=== PATIENT | female | born 1960 | race Caucasian/White ===

== ENCOUNTER 2023-07-05 17:23 | Emergency (ER) | payer BC, OTHER ==
[2023-07-05] MEDS ORDERED: Sodium Chloride 0.9% 10 ML Syringe FLUSH PRN (17:53)
[2023-07-05 18:01] LABS: BASOPHILS PERCENT AUTO 0.4 % (0.2-1.2); EOSINOPHILS ABSOLUTE AUTO 0.1 x10^3/uL (0.0-0.5); EOSINOPHILS PERCENT AUTO 1.1 % (0.0-4.0); HEMATOCRIT 41.3 % (33.0-47.0); HEMOGLOBIN 14.4 g/dL (12.0-16.0); IMMATURE GRAN ABSOLUTE AUTO 0.03 x10^3/uL (0.00-0.07); LYMPHOCYTES ABSOLUTE AUTO 2.3 x10^3/uL (1.0-4.8); LYMPHOCYTES PERCENT AUTO 26.7 % (25.0-50.0); MEAN CORPUSCULAR HEMOGLOBIN 31.2 pg (26.0-32.0); MEAN CORPUSCULAR HGB CONC 34.9 g/dL (32.0-36.0); MEAN CORPUSCULAR VOLUME 89.4 fL (78.0-93.0); MONOCYTES ABSOLUTE AUTO 0.8 x10^3/uL (0.0-0.8); MONOCYTES PERCENT AUTO 9.3 % (2.0-11.0); NEUTROPHILS ABSOLUTE AUTO 5.3 x10^3/uL (1.8-7.7); NEUTROPHILS PERCENT AUTO 62.1 % (50.0-80.0); PLATELET COUNT,PLT 351 x10^3/uL (130-400); RED BLOOD CELL COUNT 4.62 x10^6/uL (4.00-5.50); WHITE BLOOD CELL COUNT,WBC 8.5 x10^3/uL (4.0-10.0)
[2023-07-05] MEDS: Sodium Chloride 0.9% 1,000 ML IV ONE (18:03)
[2023-07-05 18:18] LABS: ALANINE AMINOTRANSFERASE,ALT 28 U/L (14-59); ALBUMIN 3.5 g/dL (3.4-5.0); ALKALINE PHOSPHATASE 86 U/L (46-116); ASPARTATE AMNIOTRANSFERASE,AST 14 U/L (15-37); BILIRUBIN TOTAL 0.3 mg/dL (0.2-1.0); BLOOD UREA NITROGEN,BUN 34 mg/dL (7-18); CALCIUM 9.6 mg/dL (8.5-10.1); CARBON DIOXIDE,CO2 25 mmol/L (21-32); CHLORIDE,CL 97 mmol/L (98-107); CREATININE 1.3 mg/dL (0.55-1.02); POTASSIUM,K 4.5 mmol/L (3.5-5.1); PROTEIN TOTAL,TP 7.4 g/dL (6.4-8.2); SODIUM,NA 134 mmol/L (136-145)
[2023-07-05 18:20] LABS: ANION GAP 16.5 mmol/L (5-15)
[2023-07-05 18:21] LABS: ESTIMATED GFR 46 mL/min (>=60); GLUCOSE RANDOM 407 mg/dL (70-99)
[2023-07-05 18:58] VITALS: BP 127/87; PULSE 87
== END 2023-07-05 18:45 | disposition home or self-care (01) ==
LOC: VM.ED 17:23
DX: E11.65 Type 2 diabetes mellitus with hyperglycemia (principal); R42 Dizziness and giddiness; Z91.148 Patient's other noncompliance with medication regimen for other reason
CPT/HCPCS: 80053; 84484; 85025; 93005; 96360; 99284; J7030; 93010

== ENCOUNTER 2023-07-29 08:10 | Inpatient (IN) | payer OTHER ==
[2023-07-31] MEDS ORDERED: Glucagon,Human Recombinant 1 MG Vial IM PRN (14:37)
[2023-07-31] MEDS ORDERED: 50% Dextrose in Water 50 ML Syringe IVPUSH PRN (14:37)
[2023-07-31] MEDS ORDERED: Clobetasol 0.05% Crm 30 GM Tube TOP PRN (14:37)
[2023-07-31] MEDS ORDERED: Acetaminophen 500 MG Tab PO PRN (14:37)
[2023-07-31] MEDS ORDERED: oxyCODONE 5 MG Tab PO PRN (14:37)
[2023-07-31] MEDS ORDERED: Melatonin 3 MG Tab PO PRN (14:51)
[2023-07-31] MEDS: Insulin Lispro 100 Units/ML 3 ML Vial SUBCUT SCH (18:56)
[2023-07-31] MEDS ORDERED: Insulin Glarg,Human.Rec.Analog 100 Unit/ML 10 ML Vial SUBCUT SCH (21:00)
[2023-07-31] MEDS: Insulin Glarg,Human.Rec.Analog 100 Unit/ML 10 ML Vial SUBCUT SCH (21:02)
[2023-07-31] MEDS: Melatonin 3 MG Tab PO SCH (21:02)
[2023-07-31] MEDS: atorvaSTATin 10 MG Tab PO SCH (21:02)
[2023-07-31] MEDS: Sennosides 8.6 MG Tab PO SCH (21:02)
[2023-07-31] MEDS: Calcium Citrate/Vitamin D3 315 MG-250 Unit Tab PO SCH (21:02)
[2023-07-31] MEDS: Tamsulosin 0.4 MG Cap.ER PO SCH (21:02)
[2023-08-01 06:49] LABS: HEMATOCRIT 31.8 % (33.0-47.0); HEMOGLOBIN 10.9 g/dL (12.0-16.0); MEAN CORPUSCULAR HGB CONC 34.3 g/dL (32.0-36.0); MEAN CORPUSCULAR VOLUME 93.3 fL (78.0-93.0); RED BLOOD CELL COUNT 3.41 x10^6/uL (4.00-5.50); WHITE BLOOD CELL COUNT,WBC 8.7 x10^3/uL (4.0-10.0)
[2023-08-01] MEDS: Fludrocortisone 0.1 MG Tab PO SCH (08:29)
[2023-08-01] MEDS: Cholecalciferol (Vitamin D3) 25 MCG Tab PO SCH (08:29)
[2023-08-01] MEDS: Enoxaparin 40 MG/0.4 ML Syringe SUBCUT SCH (08:29)
[2023-08-01] MEDS: Polyethylene Glycol 3350 Powder 17 GM Packet PO SCH (08:29)
[2023-08-01] MEDS: Sertraline 50 MG Tab PO SCH (08:29)
[2023-08-04 07:05] LABS: HEMATOCRIT 33.9 % (33.0-47.0); HEMOGLOBIN 11.5 g/dL (12.0-16.0); MEAN CORPUSCULAR HEMOGLOBIN 31.4 pg (26.0-32.0); MEAN CORPUSCULAR HGB CONC 33.9 g/dL (32.0-36.0); MEAN CORPUSCULAR VOLUME 92.6 fL (78.0-93.0); RED BLOOD CELL COUNT 3.66 x10^6/uL (4.00-5.50); WHITE BLOOD CELL COUNT,WBC 7.8 x10^3/uL (4.0-10.0)
[2023-08-05] MEDS: SEMAGLUTIDE SUBCUT SCH (12:46)
[2023-08-06] MEDS: Fludrocortisone 0.1 MG Tab PO ONE (09:56)
[2023-08-07 07:02] LABS: HEMOGLOBIN 11.9 g/dL (12.0-16.0); MEAN CORPUSCULAR HEMOGLOBIN 30.9 pg (26.0-32.0); MEAN CORPUSCULAR HGB CONC 33.1 g/dL (32.0-36.0); MEAN CORPUSCULAR VOLUME 93.5 fL (78.0-93.0); RED BLOOD CELL COUNT 3.85 x10^6/uL (4.00-5.50); WHITE BLOOD CELL COUNT,WBC 8.7 x10^3/uL (4.0-10.0)
[2023-08-07] MEDS: Fludrocortisone 0.1 MG Tab PO SCH (08:42)
[2023-08-10 07:59] LABS: HEMATOCRIT 35.9 % (33.0-47.0); HEMOGLOBIN 11.9 g/dL (12.0-16.0); MEAN CORPUSCULAR HEMOGLOBIN 31.1 pg (26.0-32.0); MEAN CORPUSCULAR HGB CONC 33.1 g/dL (32.0-36.0); MEAN CORPUSCULAR VOLUME 93.7 fL (78.0-93.0); RED BLOOD CELL COUNT 3.83 x10^6/uL (4.00-5.50); WHITE BLOOD CELL COUNT,WBC 6.4 x10^3/uL (4.0-10.0)
[2023-08-13 06:52] LABS: HEMATOCRIT 35.3 % (33.0-47.0); HEMOGLOBIN 11.7 g/dL (12.0-16.0); MEAN CORPUSCULAR HEMOGLOBIN 30.6 pg (26.0-32.0); MEAN CORPUSCULAR HGB CONC 33.1 g/dL (32.0-36.0); MEAN CORPUSCULAR VOLUME 92.4 fL (78.0-93.0); RED BLOOD CELL COUNT 3.82 x10^6/uL (4.00-5.50); WHITE BLOOD CELL COUNT,WBC 7.5 x10^3/uL (4.0-10.0)
[2023-08-14] MEDS: Fludrocortisone 0.1 MG Tab PO SCH (08:52)
[2023-08-15 13:00] LABS: A/G RATIO 0.83; ALBUMIN 2.9 g/dL (3.4-5.0); BILIRUBIN TOTAL 0.3 mg/dL (0.2-1.0); CALCIUM 9.2 mg/dL (8.5-10.1); CREATININE 0.9 mg/dL (0.55-1.02); EST CRCL DRUG DOSING (CG) 55.25 mL/min; POTASSIUM,K 3.5 mmol/L (3.5-5.1); PROTEIN TOTAL,TP 6.4 g/dL (6.4-8.2)
[2023-08-15 13:03] LABS: ANION GAP 11.5 mmol/L (5-15)
[2023-08-16 07:54] LABS: HEMATOCRIT 38.1 % (33.0-47.0); HEMOGLOBIN 12.6 g/dL (12.0-16.0); MEAN CORPUSCULAR HEMOGLOBIN 30.9 pg (26.0-32.0); MEAN CORPUSCULAR HGB CONC 33.1 g/dL (32.0-36.0); MEAN CORPUSCULAR VOLUME 93.4 fL (78.0-93.0); RED BLOOD CELL COUNT 4.08 x10^6/uL (4.00-5.50); WHITE BLOOD CELL COUNT,WBC 7.7 x10^3/uL (4.0-10.0)
[2023-08-17] MEDS: Ondansetron 4 MG Tab.DIS PO PRN (04:24)
[2023-08-18] MEDS: Sodium Chloride 0.9% 1,000 ML IV SCH (18:46)
[2023-08-19 06:57] LABS: BASOPHILS PERCENT AUTO 0.2 % (0.2-1.2); EOSINOPHILS ABSOLUTE AUTO 0.1 x10^3/uL (0.0-0.5); EOSINOPHILS PERCENT AUTO 1.7 % (0.0-4.0); HEMATOCRIT 38.4 % (33.0-47.0); HEMOGLOBIN 12.9 g/dL (12.0-16.0); IMMATURE GRAN ABSOLUTE AUTO 0.02 x10^3/uL (0.00-0.07); LYMPHOCYTES ABSOLUTE AUTO 2.3 x10^3/uL (1.0-4.8); LYMPHOCYTES PERCENT AUTO 27.5 % (25.0-50.0); MEAN CORPUSCULAR HEMOGLOBIN 31.1 pg (26.0-32.0); MEAN CORPUSCULAR HGB CONC 33.6 g/dL (32.0-36.0); MEAN CORPUSCULAR VOLUME 92.5 fL (78.0-93.0); MONOCYTES ABSOLUTE AUTO 0.8 x10^3/uL (0.0-0.8); MONOCYTES PERCENT AUTO 9.5 % (2.0-11.0); NEUTROPHILS ABSOLUTE AUTO 5.1 x10^3/uL (1.8-7.7); NEUTROPHILS PERCENT AUTO 60.9 % (50.0-80.0); PLATELET COUNT,PLT 301 x10^3/uL (130-400); RED BLOOD CELL COUNT 4.15 x10^6/uL (4.00-5.50); WHITE BLOOD CELL COUNT,WBC 8.3 x10^3/uL (4.0-10.0)
[2023-08-19 07:19] LABS: A/G RATIO 0.91; BILIRUBIN TOTAL 0.4 mg/dL (0.2-1.0); CALCIUM 9.2 mg/dL (8.5-10.1); CREATININE 0.8 mg/dL (0.55-1.02); EST CRCL DRUG DOSING (CG) 62.15 mL/min; POTASSIUM,K 3.8 mmol/L (3.5-5.1); PROTEIN TOTAL,TP 6.3 g/dL (6.4-8.2)
[2023-08-19 07:21] LABS: ANION GAP 11.8 mmol/L (5-15)
[2023-08-19 07:29] LABS: MAGNESIUM 1.8 mg/dL (1.8-2.4); TSH ULTRASENSITIVE 3.036 uIU/mL (0.358-3.74)
[2023-08-22] MEDS ORDERED: Glucagon,Human Recombinant 1 MG Vial IM PRN (08:40)
[2023-08-22] MEDS ORDERED: 50% Dextrose in Water 50 ML Syringe IVPUSH PRN (08:40)
[2023-08-22] MEDS: Sodium Chloride 0.9% 1,000 ML IV ONE (09:25)
[2023-08-22] MEDS: Fludrocortisone 0.1 MG Tab PO SCH (09:28)
[2023-08-22] MEDS: Insulin Lispro 100 Units/ML 3 ML Vial SUBCUT SCH (11:56)
[2023-08-22] MEDS: Insulin Glarg,Human.Rec.Analog 100 Unit/ML 10 ML Vial SUBCUT SCH (20:45)
[2023-08-22] MEDS: Sodium Chloride 0.9% 10 ML Syringe FLUSH SCH (20:54)
[2023-08-24] MEDS: Fludrocortisone 0.1 MG Tab PO SCH (14:57)
[2023-08-25 07:07] LABS: BASOPHILS PERCENT AUTO 0.3 % (0.2-1.2); EOSINOPHILS ABSOLUTE AUTO 0.2 x10^3/uL (0.0-0.5); EOSINOPHILS PERCENT AUTO 2.7 % (0.0-4.0); HEMATOCRIT 39.1 % (33.0-47.0); HEMOGLOBIN 13.3 g/dL (12.0-16.0); IMMATURE GRAN ABSOLUTE AUTO 0.03 x10^3/uL (0.00-0.07); LYMPHOCYTES ABSOLUTE AUTO 2.6 x10^3/uL (1.0-4.8); LYMPHOCYTES PERCENT AUTO 34.2 % (25.0-50.0); MEAN CORPUSCULAR HEMOGLOBIN 31.3 pg (26.0-32.0); MONOCYTES ABSOLUTE AUTO 0.9 x10^3/uL (0.0-0.8); NEUTROPHILS PERCENT AUTO 51.4 % (50.0-80.0); PLATELET COUNT,PLT 303 x10^3/uL (130-400); RED BLOOD CELL COUNT 4.25 x10^6/uL (4.00-5.50); WHITE BLOOD CELL COUNT,WBC 7.7 x10^3/uL (4.0-10.0)
[2023-08-25 07:25] LABS: CREATININE 0.8 mg/dL (0.55-1.02); EST CRCL DRUG DOSING (CG) 62.15 mL/min; POTASSIUM,K 3.9 mmol/L (3.5-5.1)
[2023-08-25 07:26] LABS: ANION GAP 10.9 mmol/L (5-15)
[2023-08-28] MEDS: Insulin Lispro 100 Units/ML 3 ML Vial SUBCUT SCH (18:26)
[2023-08-28] MEDS: Insulin Glarg,Human.Rec.Analog 100 Unit/ML 10 ML Vial SUBCUT SCH (21:58)
[2023-08-30] MEDS: Sodium Chloride 0.9% 500 ML IV ONE (20:41)
[2023-08-31] MEDS: Sodium Chloride 0.9% 10 ML Syringe FLUSH SCH (08:29)
[2023-09-01] MEDS: Fludrocortisone 0.1 MG Tab PO SCH (20:27)
[2023-09-02 06:31] LABS: BASOPHILS PERCENT AUTO 0.1 % (0.2-1.2); EOSINOPHILS ABSOLUTE AUTO 0.4 x10^3/uL (0.0-0.5); EOSINOPHILS PERCENT AUTO 4.4 % (0.0-4.0); HEMATOCRIT 38.2 % (33.0-47.0); HEMOGLOBIN 12.7 g/dL (12.0-16.0); IMMATURE GRAN ABSOLUTE AUTO 0.01 x10^3/uL (0.00-0.07); LYMPHOCYTES ABSOLUTE AUTO 2.7 x10^3/uL (1.0-4.8); LYMPHOCYTES PERCENT AUTO 30.8 % (25.0-50.0); MEAN CORPUSCULAR HEMOGLOBIN 30.8 pg (26.0-32.0); MEAN CORPUSCULAR HGB CONC 33.2 g/dL (32.0-36.0); MEAN CORPUSCULAR VOLUME 92.7 fL (78.0-93.0); MONOCYTES ABSOLUTE AUTO 0.8 x10^3/uL (0.0-0.8); MONOCYTES PERCENT AUTO 8.6 % (2.0-11.0); NEUTROPHILS ABSOLUTE AUTO 4.9 x10^3/uL (1.8-7.7); PLATELET COUNT,PLT 313 x10^3/uL (130-400); RED BLOOD CELL COUNT 4.12 x10^6/uL (4.00-5.50); WHITE BLOOD CELL COUNT,WBC 8.7 x10^3/uL (4.0-10.0)
[2023-09-02 06:47] LABS: CALCIUM 8.7 mg/dL (8.5-10.1); CREATININE 0.8 mg/dL (0.55-1.02); EST CRCL DRUG DOSING (CG) 62.15 mL/min; POTASSIUM,K 3.6 mmol/L (3.5-5.1)
[2023-09-02 06:53] LABS: ANION GAP 11.6 mmol/L (5-15)
[2023-09-02] MEDS: Midodrine 5 MG Tab PO SCH (09:23)
[2023-09-03] MEDS: Insulin Lispro 100 Units/ML 3 ML Vial SUBCUT SCH (08:57)
[2023-09-03] MEDS ORDERED: Polyethylene Glycol 3350 Powder 17 GM Packet PO PRN (12:23)
[2023-09-03] MEDS: Insulin Glarg,Human.Rec.Analog 100 Unit/ML 10 ML Vial SUBCUT SCH (20:53)
[2023-09-04] MEDS: Midodrine 5 MG Tab PO SCH (08:40)
[2023-09-05 05:07] LABS: % TRANSFERRIN SAT 17.5 % (20.0-50.0)
[2023-09-09] MEDS: Insulin Glarg,Human.Rec.Analog 100 Unit/ML 10 ML Vial SUBCUT SCH (21:04)
[2023-09-10] MEDS: Fludrocortisone 0.1 MG Tab PO SCH (12:20)
[2023-09-11 16:32] VITALS: BP 118/68; PULSE 78
== END 2023-09-11 16:30 | disposition home health service (06) | DRG 560 ==
LOC: VM.MS 07-31 12:41
PROVIDERS: ADMIT Nurse Practitioner Family; ATTEND Internal Medicine
DX: S82.841D Displaced bimalleolar fracture of right lower leg, subsequent encounter for closed fracture with routine healing (principal); E44.1 Mild protein-calorie malnutrition; I10 Essential (primary) hypertension; F32.9 Major depressive disorder, single episode, unspecified; E11.319 Type 2 diabetes mellitus with unspecified diabetic retinopathy without macular edema; E78.00 Pure hypercholesterolemia, unspecified; F41.9 Anxiety disorder, unspecified; R33.8 Other retention of urine; K59.03 Drug induced constipation; T40.2X5A Adverse effect of other opioids, initial encounter; G47.00 Insomnia, unspecified; I95.1 Orthostatic hypotension; E11.65 Type 2 diabetes mellitus with hyperglycemia; R79.89 Other specified abnormal findings of blood chemistry; Z98.890 Other specified postprocedural states; Z91.81 History of falling; Z79.4 Long term (current) use of insulin; Z79.01 Long term (current) use of anticoagulants; Z79.899 Other long term (current) drug therapy; Z98.49 Cataract extraction status, unspecified eye; Z63.4 Disappearance and death of family member; Z97.8 Presence of other specified devices
CPT/HCPCS: 36415; 51798; 80048; 80053; 82533; 82947; 83540; 83550; 83690; 83735; 84443; 85025; 85027; 87070; 95851-GO; 97110-GP; 97116-GP; 97161-GP; 97165-GO; 97530-GO; 97530-GP; 97535-GO; A9270-GY; J1650; J1815-GY; J3490; J7030

== ENCOUNTER 2023-10-27 11:35 | Emergency (ER) | payer OTHER ==
[2023-10-27 12:10] LABS: BASOPHILS PERCENT AUTO 0.4 % (0.2-1.2); EOSINOPHILS ABSOLUTE AUTO 0.2 x10^3/uL (0.0-0.5); EOSINOPHILS PERCENT AUTO 1.6 % (0.0-4.0); HEMATOCRIT 40.6 % (33.0-47.0); HEMOGLOBIN 13.9 g/dL (12.0-16.0); IMMATURE GRAN ABSOLUTE AUTO 0.03 x10^3/uL (0.00-0.07); LYMPHOCYTES ABSOLUTE AUTO 2.6 x10^3/uL (1.0-4.8); LYMPHOCYTES PERCENT AUTO 28.1 % (25.0-50.0); MEAN CORPUSCULAR HEMOGLOBIN 30.5 pg (26.0-32.0); MEAN CORPUSCULAR HGB CONC 34.2 g/dL (32.0-36.0); MONOCYTES PERCENT AUTO 10.5 % (2.0-11.0); NEUTROPHILS ABSOLUTE AUTO 5.5 x10^3/uL (1.8-7.7); NEUTROPHILS PERCENT AUTO 59.1 % (50.0-80.0); PLATELET COUNT,PLT 368 x10^3/uL (130-400); RED BLOOD CELL COUNT 4.56 x10^6/uL (4.00-5.50); WHITE BLOOD CELL COUNT,WBC 9.3 x10^3/uL (4.0-10.0)
[2023-10-27 12:34] LABS: BLOOD UREA NITROGEN,BUN 36 mg/dL (7-18); CALCIUM 9.8 mg/dL (8.5-10.1); CARBON DIOXIDE,CO2 22 mmol/L (21-32); CHLORIDE,CL 102 mmol/L (98-107); CREATININE 1.1 mg/dL (0.55-1.02); GLUCOSE RANDOM 174 mg/dL (70-99); POTASSIUM,K 4.5 mmol/L (3.5-5.1); SODIUM,NA 138 mmol/L (136-145)
[2023-10-27 12:36] LABS: ANION GAP 18.5 mmol/L (5-15); ESTIMATED GFR 56 mL/min (>=60)
[2023-10-27] MEDS: LORazepam 2 MG/ML SDV IVPUSH ONE (12:36)
[2023-10-27 12:50] LABS: APPEARANCE,URINE SLIGHTLY CLOUDY (CLEAR); BILIRUBIN,URINE NEGATIVE (NEGATIVE); COLOR,URINE YELLOW (YELLOW); GLUCOSE,URINE NEGATIVE (NEGATIVE); KETONES,URINE NEGATIVE (NEGATIVE); LEUKOCYTE ESTERASE,URINE SMALL (NEGATIVE); NITRITE,URINE NEGATIVE (NEGATIVE); OCCULT BLOOD,URINE NEGATIVE (NEGATIVE); PH,URINE 6.5 (5.0-8.0); PROTEIN,URINE NEGATIVE (NEGATIVE); UROBILINOGEN,URINE 0.2 EU/dL (0.2)
[2023-10-27 12:54] LABS: RBC,URINE 0-5 /HPF (NOT SEEN); SQUAMOUS EPITHELIAL CELLS,UR FEW /HPF (NOT SEEN)
[2023-10-27 12:55] LABS: BACTERIA,URINE RARE /HPF (NOT SEEN); MUCUS,URINE RARE /LPF (NOT SEEN)
[2023-10-27] MEDS: Sodium Chloride 0.9% 1,000 ML IV ONE (13:30)
[2023-10-27 15:19] VITALS: BP 142/78; PULSE 75
== END 2023-10-27 14:55 | disposition home or self-care (01) ==
LOC: VM.ED 11:35
DX: N17.9 Acute kidney failure, unspecified (principal); R53.1 Weakness; R25.1 Tremor, unspecified; I10 Essential (primary) hypertension; Z79.4 Long term (current) use of insulin; E78.00 Pure hypercholesterolemia, unspecified; E11.9 Type 2 diabetes mellitus without complications; Z79.899 Other long term (current) drug therapy
CPT/HCPCS: 36415; 80048; 81001; 85025; 87086; 96374; 99285; J2060; J7030

== ENCOUNTER 2024-07-13 11:53 | Inpatient (IN) | payer OTHER ==
[2024-07-13 12:31] LABS: HEMATOCRIT 36.5 % (33.0-47.0); HEMOGLOBIN 12.3 g/dL (12.0-16.0); MEAN CORPUSCULAR HEMOGLOBIN 31.1 pg (26.0-32.0); MEAN CORPUSCULAR HGB CONC 33.7 g/dL (32.0-36.0); MEAN CORPUSCULAR VOLUME 92.4 fL (78.0-93.0); PLATELET COUNT,PLT 426 x10^3/uL (130-400); RED BLOOD CELL COUNT 3.95 x10^6/uL (4.00-5.50)
[2024-07-13 12:37] LABS: WHITE BLOOD CELL COUNT,WBC 20.7 x10^3/uL (4.0-10.0)
[2024-07-13 12:43] LABS: LYMPHOCYTES ABSOLUTE MAN 1.7 x10^3/uL (1.0-4.8); LYMPHOCYTES PERCENT MAN 8 % (25-50); MONOCYTES ABSOLUTE MAN 1.2 x10^3/uL (0.0-0.8); MONOCYTES PERCENT MAN 6 % (2-11); NEUTROPHILS ABSOLUTE MAN 17.8 x10^3/uL (1.8-7.7); SEG NEUTROPHILS PERCENT MAN 86 % (50-80)
[2024-07-13 12:44] LABS: HEMOGLOBIN A1C 8.7 % (<5.7)
[2024-07-13 12:50] LABS: A/G RATIO 0.51; ALANINE AMINOTRANSFERASE,ALT 15 U/L (14-59); ALBUMIN 2.6 g/dL (3.4-5.0); ALKALINE PHOSPHATASE 100 U/L (46-116); ANION GAP 15.5 mmol/L (5-15); ASPARTATE AMNIOTRANSFERASE,AST 14 U/L (15-37); BILIRUBIN TOTAL 0.7 mg/dL (0.2-1.0); BLOOD UREA NITROGEN,BUN 27 mg/dL (7-18); CARBON DIOXIDE,CO2 24 mmol/L (21-32); CHLORIDE,CL 95 mmol/L (98-107); CREATININE 1.8 mg/dL (0.55-1.02); ESTIMATED GFR 31 mL/min (>=60); GLUCOSE RANDOM 251 mg/dL (70-99); MAGNESIUM 1.9 mg/dL (1.8-2.4); POTASSIUM,K 4.5 mmol/L (3.5-5.1); PROTEIN TOTAL,TP 7.7 g/dL (6.4-8.2); SODIUM,NA 130 mmol/L (136-145)
[2024-07-13] MEDS: Piperacillin/Tazobactam 4.5 GM in Sodium Chloride 0.9% 100 ML IV ONE (13:05)
[2024-07-13] MEDS: Piperacillin/Tazobactam 4.5 GM Vial ONE (13:06)
[2024-07-13] MEDS: Sodium Chloride 0.9% 100 ML ONE (13:09)
[2024-07-13] MEDS: Iopamidol 612 MG/ML 100 ML Bottle IVPUSH ONE (13:16)
[2024-07-13] MEDS: VANCOmycin 1.75 GM/350 ML 1.75 GM in Premix Bag 1 BAG IV ONE (14:16)
[2024-07-13] MEDS ORDERED: Sennosides/Docusate Sodium 50-8.6 MG Tab PO PRN (16:27)
[2024-07-13] MEDS ORDERED: Ondansetron 4 MG Tab.DIS PO PRN (16:27)
[2024-07-13] MEDS ORDERED: Glucagon,Human Recombinant 1 MG Vial IM PRN (16:30)
[2024-07-13] MEDS ORDERED: 50% Dextrose in Water 50 ML Syringe IVPUSH PRN (16:30)
[2024-07-13] MEDS: Piperacillin/Tazobactam 4.5 GM in Sodium Chloride 0.9% 100 ML IV SCH (17:17)
[2024-07-13] MEDS: Calcium Carbonate/Vitamin D3 1250 MG-5 MCG Tab PO SCH (17:18)
[2024-07-13] MEDS: Acetaminophen 500 MG Tab PO PRN (17:18)
[2024-07-13] MEDS: Sodium Chloride 0.9% 1,000 ML IV SCH (17:56)
[2024-07-13] MEDS: Insulin Lispro 100 Units/ML 3 ML Vial SUBCUT SCH (17:59)
[2024-07-13] MEDS: VANCOmycin 1.25 GM/250 ML 1.25 GM in Premix Bag 1 BAG IV SCH (18:15)
[2024-07-13] MEDS: atorvaSTATin 10 MG Tab PO SCH (21:30)
[2024-07-13] MEDS: Cholecalciferol (Vitamin D3) 25 MCG Tab PO SCH (21:31)
[2024-07-13] MEDS: Insulin Glarg,Human.Rec.Analog 100 Unit/ML 10 ML Vial SUBCUT SCH (21:31)
[2024-07-14 07:10] LABS: HEMATOCRIT 32.5 % (33.0-47.0); MEAN CORPUSCULAR HEMOGLOBIN 31.4 pg (26.0-32.0); MEAN CORPUSCULAR HGB CONC 33.8 g/dL (32.0-36.0); MEAN CORPUSCULAR VOLUME 92.9 fL (78.0-93.0); PLATELET COUNT,PLT 412 x10^3/uL (130-400)
[2024-07-14 07:36] LABS: ANION GAP 12.4 mmol/L (5-15); C-REACTIVE PROTEIN 20.33 mg/dL (<=0.50); CALCIUM 8.7 mg/dL (8.5-10.1); CREATININE 1.7 mg/dL (0.55-1.02); EST CRCL DRUG DOSING (CG) 28.87 mL/min; POTASSIUM,K 4.4 mmol/L (3.5-5.1); VANCOMYCIN RANDOM 15.2 ug/mL (5.0-10.0)
[2024-07-14 07:45] LABS: WHITE BLOOD CELL COUNT,WBC 20.9 x10^3/uL (4.0-10.0)
[2024-07-14 07:48] LABS: LYMPHOCYTES PERCENT MAN 5 % (25-50); MONOCYTES ABSOLUTE MAN 1.5 x10^3/uL (0.0-0.8); MONOCYTES PERCENT MAN 7 % (2-11); NEUTROPHILS ABSOLUTE MAN 18.4 x10^3/uL (1.8-7.7); SEG NEUTROPHILS PERCENT MAN 88 % (50-80)
[2024-07-14] MEDS: Sertraline 50 MG Tab PO SCH (08:00)
[2024-07-14] MEDS: Enoxaparin 40 MG/0.4 ML Syringe SUBCUT SCH (11:37)
[2024-07-14] MEDS: VANCOmycin 1 GM in Sodium Chloride 0.9% 250 ML IV SCH (12:54)
[2024-07-14] MEDS: Insulin Glarg,Human.Rec.Analog 100 Unit/ML 10 ML Vial SUBCUT SCH (20:32)
[2024-07-15 08:28] LABS: HEMATOCRIT 31.3 % (33.0-47.0); HEMOGLOBIN 10.3 g/dL (12.0-16.0); MEAN CORPUSCULAR HEMOGLOBIN 30.9 pg (26.0-32.0); MEAN CORPUSCULAR HGB CONC 32.9 g/dL (32.0-36.0); PLATELET COUNT,PLT 410 x10^3/uL (130-400); RED BLOOD CELL COUNT 3.33 x10^6/uL (4.00-5.50); WHITE BLOOD CELL COUNT,WBC 19.1 x10^3/uL (4.0-10.0)
[2024-07-15 08:40] LABS: ANION GAP 12.7 mmol/L (5-15); CALCIUM 8.3 mg/dL (8.5-10.1); CREATININE 1.5 mg/dL (0.55-1.02); EST CRCL DRUG DOSING (CG) 32.72 mL/min; POTASSIUM,K 4.7 mmol/L (3.5-5.1)
[2024-07-15 08:49] LABS: LYMPHOCYTES PERCENT MAN 5 % (25-50); MONOCYTES ABSOLUTE MAN 1.5 x10^3/uL (0.0-0.8); MONOCYTES PERCENT MAN 8 % (2-11); NEUTROPHILS ABSOLUTE MAN 16.6 x10^3/uL (1.8-7.7); SEG NEUTROPHILS PERCENT MAN 87 % (50-80)
[2024-07-16 07:49] LABS: HEMATOCRIT 29.5 % (33.0-47.0); HEMOGLOBIN 9.5 g/dL (12.0-16.0); MEAN CORPUSCULAR HGB CONC 32.2 g/dL (32.0-36.0); MEAN CORPUSCULAR VOLUME 96.4 fL (78.0-93.0); RED BLOOD CELL COUNT 3.06 x10^6/uL (4.00-5.50)
[2024-07-16 07:53] LABS: WHITE BLOOD CELL COUNT,WBC 20.8 x10^3/uL (4.0-10.0)
[2024-07-16 12:44] VITALS: BP 159/72; PULSE 82
== END 2024-07-16 13:55 | disposition short-term general hospital (02) | DRG 872 ==
LOC: VM.ED 11:53 → VM.MS 14:36
PROVIDERS: ADMIT Nurse Practitioner Family; ATTEND Nurse Practitioner Family
DX: A41.89 Other specified sepsis (principal); M86.8X7 Other osteomyelitis, ankle and foot; E87.1 Hypo-osmolality and hyponatremia; E11.69 Type 2 diabetes mellitus with other specified complication; E11.621 Type 2 diabetes mellitus with foot ulcer; E11.40 Type 2 diabetes mellitus with diabetic neuropathy, unspecified; E66.9 Obesity, unspecified; F32.A Depression, unspecified; E11.319 Type 2 diabetes mellitus with unspecified diabetic retinopathy without macular edema; E11.65 Type 2 diabetes mellitus with hyperglycemia; L97.524 Non-pressure chronic ulcer of other part of left foot with necrosis of bone; E78.00 Pure hypercholesterolemia, unspecified; F34.1 Dysthymic disorder; E11.649 Type 2 diabetes mellitus with hypoglycemia without coma; B96.29 Other Escherichia coli [E. coli] as the cause of diseases classified elsewhere; Z79.4 Long term (current) use of insulin; Z98.49 Cataract extraction status, unspecified eye; Z98.890 Other specified postprocedural states; Z79.1 Long term (current) use of non-steroidal anti-inflammatories (NSAID); Z79.899 Other long term (current) drug therapy; Z87.81 Personal history of (healed) traumatic fracture
CPT/HCPCS: 36415; 73701-LT; 80048; 80053; 80202; 82947; 83036; 83605; 83735; 84145; 85025; 85027; 86140; 87040; 87070; 87077; 87147; 87186; 96365; 96367; 99284; 99284-25; A9270-GY; J1650; J1815-GY; J2543; J3372; J7030; J7050; Q9967

== ENCOUNTER 2024-07-26 13:33 | Inpatient (IN) | payer MEDICAID, OTHER ==
[2024-07-26] MEDS ORDERED: 50% Dextrose in Water 50 ML Syringe IVPUSH PRN (17:13)
[2024-07-26] MEDS ORDERED: oxyCODONE 5 MG Tab PO PRN (17:13)
[2024-07-26] MEDS ORDERED: Glucagon,Human Recombinant 1 MG Vial IM PRN (17:13)
[2024-07-26] MEDS ORDERED: Ondansetron 4 MG Tab.DIS PO PRN (17:29)
[2024-07-26] MEDS: Lactobacillus Rhamnosus GG (Probiotic) Cap PO SCH (17:46)
[2024-07-26] MEDS: Insulin Lispro 100 Units/ML 3 ML Vial SUBCUT SCH ×2 (17:46→17:50)
[2024-07-26] MEDS ORDERED: metroNIDAZOLE 500 MG Tab PO SCH (20:00)
[2024-07-26] MEDS: atorvaSTATin 10 MG Tab PO SCH (20:33)
[2024-07-26] MEDS: Cefdinir 300 MG Cap PO SCH (20:34)
[2024-07-26] MEDS: Gabapentin 300 MG Cap PO SCH (20:34)
[2024-07-26] MEDS: Cholecalciferol (Vitamin D3) 25 MCG Tab PO SCH (20:34)
[2024-07-26] MEDS: Insulin Glarg,Human.Rec.Analog 100 Unit/ML 10 ML Vial SUBCUT SCH (20:39)
[2024-07-26] MEDS: metroNIDAZOLE 500 MG Tab PO SCH (21:52)
[2024-07-27] MEDS: amLODIPine 5 MG Tab PO SCH (08:20)
[2024-07-27] MEDS: Folic Acid 1 MG Tab PO SCH (08:20)
[2024-07-27] MEDS: Sertraline 50 MG Tab PO SCH (08:20)
[2024-07-27] MEDS: Ferrous Sulfate 325 MG Tab PO SCH (08:21)
[2024-07-27] MEDS: Enoxaparin 40 MG/0.4 ML Syringe SUBCUT SCH (08:21)
[2024-07-29 06:55] LABS: HEMATOCRIT 33.4 % (33.0-47.0); HEMOGLOBIN 10.6 g/dL (12.0-16.0); MEAN CORPUSCULAR HEMOGLOBIN 30.5 pg (26.0-32.0); MEAN CORPUSCULAR HGB CONC 31.7 g/dL (32.0-36.0); MEAN CORPUSCULAR VOLUME 96.3 fL (78.0-93.0); RED BLOOD CELL COUNT 3.47 x10^6/uL (4.00-5.50); WHITE BLOOD CELL COUNT,WBC 6.1 x10^3/uL (4.0-10.0)
[2024-07-29 07:27] LABS: A/G RATIO 0.45; ALBUMIN 1.9 g/dL (3.4-5.0); BILIRUBIN TOTAL 0.2 mg/dL (0.2-1.0); CREATININE 1.2 mg/dL (0.55-1.02); EST CRCL DRUG DOSING (CG) 40.9 mL/min; PROTEIN TOTAL,TP 6.1 g/dL (6.4-8.2)
[2024-07-30] MEDS: Insulin Glarg,Human.Rec.Analog 100 Unit/ML 10 ML Vial SUBCUT SCH (21:22)
[2024-08-01 08:03] LABS: HEMOGLOBIN 11.5 g/dL (12.0-16.0); MEAN CORPUSCULAR HEMOGLOBIN 30.5 pg (26.0-32.0); MEAN CORPUSCULAR HGB CONC 31.9 g/dL (32.0-36.0); MEAN CORPUSCULAR VOLUME 95.5 fL (78.0-93.0); RED BLOOD CELL COUNT 3.77 x10^6/uL (4.00-5.50); WHITE BLOOD CELL COUNT,WBC 6.3 x10^3/uL (4.0-10.0)
[2024-08-01] MEDS: Insulin Glarg,Human.Rec.Analog 100 Unit/ML 10 ML Vial SUBCUT SCH (20:14)
[2024-08-02] MEDS: Fludrocortisone 0.1 MG Tab PO SCH (14:53)
[2024-08-04 06:49] LABS: HEMATOCRIT 34.5 % (33.0-47.0); MEAN CORPUSCULAR HEMOGLOBIN 30.7 pg (26.0-32.0); MEAN CORPUSCULAR HGB CONC 31.9 g/dL (32.0-36.0); MEAN CORPUSCULAR VOLUME 96.4 fL (78.0-93.0); RED BLOOD CELL COUNT 3.58 x10^6/uL (4.00-5.50); WHITE BLOOD CELL COUNT,WBC 7.2 x10^3/uL (4.0-10.0)
[2024-08-07 07:50] LABS: HEMATOCRIT 34.1 % (33.0-47.0); HEMOGLOBIN 10.9 g/dL (12.0-16.0); MEAN CORPUSCULAR HEMOGLOBIN 30.4 pg (26.0-32.0); MEAN CORPUSCULAR VOLUME 95.3 fL (78.0-93.0); RED BLOOD CELL COUNT 3.58 x10^6/uL (4.00-5.50); WHITE BLOOD CELL COUNT,WBC 5.1 x10^3/uL (4.0-10.0)
[2024-08-10 06:51] LABS: HEMOGLOBIN 10.9 g/dL (12.0-16.0); MEAN CORPUSCULAR HGB CONC 32.1 g/dL (32.0-36.0); MEAN CORPUSCULAR VOLUME 96.6 fL (78.0-93.0); RED BLOOD CELL COUNT 3.52 x10^6/uL (4.00-5.50); WHITE BLOOD CELL COUNT,WBC 5.6 x10^3/uL (4.0-10.0)
[2024-08-13 07:12] LABS: HEMATOCRIT 33.3 % (33.0-47.0); MEAN CORPUSCULAR HEMOGLOBIN 31.4 pg (26.0-32.0); MEAN CORPUSCULAR VOLUME 95.1 fL (78.0-93.0); RED BLOOD CELL COUNT 3.5 x10^6/uL (4.00-5.50); WHITE BLOOD CELL COUNT,WBC 5.3 x10^3/uL (4.0-10.0)
[2024-08-16 07:11] LABS: HEMATOCRIT 34.9 % (33.0-47.0); HEMOGLOBIN 11.5 g/dL (12.0-16.0); MEAN CORPUSCULAR HEMOGLOBIN 31.8 pg (26.0-32.0); MEAN CORPUSCULAR VOLUME 96.4 fL (78.0-93.0); RED BLOOD CELL COUNT 3.62 x10^6/uL (4.00-5.50); WHITE BLOOD CELL COUNT,WBC 4.9 x10^3/uL (4.0-10.0)
[2024-08-18] MEDS: Insulin Glarg,Human.Rec.Analog 100 Unit/ML 10 ML Vial SUBCUT SCH (20:26)
[2024-08-23 07:32] LABS: HEMATOCRIT 37.6 % (33.0-47.0); HEMOGLOBIN 12.5 g/dL (12.0-16.0); MEAN CORPUSCULAR HEMOGLOBIN 32.5 pg (26.0-32.0); MEAN CORPUSCULAR HGB CONC 33.2 g/dL (32.0-36.0); MEAN CORPUSCULAR VOLUME 97.7 fL (78.0-93.0); RED BLOOD CELL COUNT 3.85 x10^6/uL (4.00-5.50); WHITE BLOOD CELL COUNT,WBC 4.8 x10^3/uL (4.0-10.0)
[2024-08-23 07:41] LABS: A/G RATIO 0.74; ALBUMIN 2.8 g/dL (3.4-5.0); ANION GAP 12.5 mmol/L (5-15); BILIRUBIN TOTAL 0.2 mg/dL (0.2-1.0); CALCIUM 8.9 mg/dL (8.5-10.1); CREATININE 1.4 mg/dL (0.55-1.02); EST CRCL DRUG DOSING (CG) 35.06 mL/min; POTASSIUM,K 4.5 mmol/L (3.5-5.1); PROTEIN TOTAL,TP 6.6 g/dL (6.4-8.2)
[2024-08-26] MEDS: INSULIN LISPRO 100 UNIT/ML SUBCUT SCH (18:20)
[2024-08-26] MEDS: ATORVASTATIN 10 MG PO SCH (20:23)
[2024-08-26] MEDS: Insulin Glarg,Human.Rec.Analog 100 Unit/ML 10 ML Vial SUBCUT SCH (20:28)
[2024-08-27] MEDS: FLUDROCORTISONE 0.1 MG PO SCH (06:27)
[2024-08-27] MEDS: Folic Acid 1 MG Tab (OWN SUPPLY) PO SCH (08:00)
[2024-08-27] MEDS: Sertraline 50 MG Tab (OWN SUPPLY) PO SCH (13:22)
[2024-09-01] MEDS: Acetaminophen 500 MG Tab PO PRN (02:39)
[2024-09-01] MEDS: Insulin Glarg,Human.Rec.Analog 100 Unit/ML 10 ML Vial SUBCUT SCH (20:56)
[2024-09-07] MEDS: Insulin Glarg,Human.Rec.Analog 100 Unit/ML 10 ML Vial SUBCUT SCH (20:27)
[2024-10-05 16:33] VITALS: BP 122/60; PULSE 76
== END 2024-10-05 17:00 | disposition home health service (06) | DRG 948 ==
LOC: VM.MS 13:33 → UNDOADMIN 13:33 → VM.MS 08-26 10:55 → UNDOADMIN 08-26 10:55 → VM.MS 09-08 08:22
PROVIDERS: ADMIT Nurse Practitioner Family; ATTEND Nurse Practitioner Family
DX: R53.1 Weakness (principal); M86.8X7 Other osteomyelitis, ankle and foot; N18.9 Chronic kidney disease, unspecified; E11.22 Type 2 diabetes mellitus with diabetic chronic kidney disease; F32.A Depression, unspecified; E11.319 Type 2 diabetes mellitus with unspecified diabetic retinopathy without macular edema; H26.9 Unspecified cataract; E78.00 Pure hypercholesterolemia, unspecified; I12.9 Hypertensive chronic kidney disease with stage 1 through stage 4 chronic kidney disease, or unspecified chronic kidney disease; E11.51 Type 2 diabetes mellitus with diabetic peripheral angiopathy without gangrene; R53.81 Other malaise; F41.9 Anxiety disorder, unspecified; E66.9 Obesity, unspecified; D64.9 Anemia, unspecified; E11.69 Type 2 diabetes mellitus with other specified complication; L08.9 Local infection of the skin and subcutaneous tissue, unspecified; I95.9 Hypotension, unspecified; Z47.81 Encounter for orthopedic aftercare following surgical amputation; Z89.512 Acquired absence of left leg below knee; Z79.1 Long term (current) use of non-steroidal anti-inflammatories (NSAID); Z79.02 Long term (current) use of antithrombotics/antiplatelets; Z87.81 Personal history of (healed) traumatic fracture; Z98.49 Cataract extraction status, unspecified eye; Z68.34 Body mass index [BMI] 34.0-34.9, adult; Z91.199 Patient's noncompliance with other medical treatment and regimen due to unspecified reason; Z79.4 Long term (current) use of insulin; Z79.899 Other long term (current) drug therapy; Z79.891 Long term (current) use of opiate analgesic
CPT/HCPCS: 36415; 80053; 82947; 85027; 97110-GO; 97110-GP; 97116-GP; 97161-GP; 97165-GO; 97168-GO; 97530-GO; 97530-GP; 97535-GO; A9270-GY; J1650; J1815-GY